=== PATIENT | male | born 1955 | race Caucasian/White ===

== ENCOUNTER 2016-12-13 21:57 | Emergency (ER) | payer BC ==
[~2016-12-13] VITALS: Ht 185.4 cm; Wt 144.0 kg
[~2016-12-13 21:57] MED LIST: ALLEGRA180 MG PO; AMLODIPINE5 MG PO; ASPIRIN LOW DOS81 M2 PO; ATORVASTATIN CA40 MG PO; BACTROBAN2 % EX; BAYER LOW81 MG OR; CEPHALEXIN500 MG OR; DIOVAN HCT160 MG/25 OR; FINASTERIDE5 MG PO; FLONASE NASAL50 MCG; GEMFIBROZIL600 MG OR; KLOR-CON/EF25 MEQ PO; LORTAB5 PO; LOSARTAN/HCT1 TA1 PO; LOSARTAN/HCT1 TA2 PO; MELOXICAM7.5 MG OR; METOPROL TAR25 MG PO; MOBIC7.5 M1 PO; NAPROXEN500 MG OR; PERCOCET 5/325M1 TAB OR; STATIN DRUG; ULTRAM50 M1 OR; ULTRAM50 MG OR; ZYLOPRIM300 MG PO
[2016-12-13] MEDS ORDERED: GABAPENTIN100 MG PO (22:11)
[2016-12-13] MEDS ORDERED: TAMSULOSIN0.4 MG PO (22:13)
[2016-12-13] MEDS ORDERED: FLOXIN OTIC0.3 % AD (22:25)
[2016-12-13] MEDS ORDERED: AMOX/K CLAV875 M1 PO (22:25)
[2016-12-13] MEDS ORDERED: FLONASE AL50 MCG/ACT (22:25)
[2016-12-13 22:34] VITALS: BP 126/64
== END 2016-12-13 22:34 | disposition home or self-care (01) | DRG 153 ==
LOC: ED 21:57
DX: H66.91 Otitis media, unspecified, right ear (principal); I10 Essential (primary) hypertension

== ENCOUNTER 2017-01-04 17:35 | Emergency (ER) | payer BC ==
[~2017-01-04] VITALS: Ht 185.4 cm; Wt 144.0 kg
[~2017-01-04 17:35] MED LIST changes: +AMOX/K CLAV875 M1 PO; +FLONASE AL50 MCG/ACT; +FLOXIN OTIC0.3 % AD; +GABAPENTIN100 MG PO; +TAMSULOSIN0.4 MG PO
[2017-01-04] MEDS ORDERED: FLONASE AL50 MCG/ACT (19:10)
[2017-01-04] MEDS ORDERED: CLARITIN10 M1 PO (19:10)
[2017-01-04] MEDS ORDERED: CEPHALEXIN500 MG PO (19:10)
[2017-01-04 19:13] VITALS: BP 163/124
== END 2017-01-04 19:19 | disposition home or self-care (01) | DRG 153 ==
LOC: ED 17:35
DX: H65.93 Unspecified nonsuppurative otitis media, bilateral (principal); I10 Essential (primary) hypertension

== ENCOUNTER 2017-10-23 08:40 | Emergency (ER) | payer BC ==
[~2017-10-23] VITALS: Ht 185.4 cm; Wt 136.0 kg
[~2017-10-23 08:40] MED LIST changes: +CEPHALEXIN500 MG PO; +CLARITIN10 M1 PO
[2017-10-23 09:43] VITALS: BP 155/81
== END 2017-10-23 09:46 | disposition home or self-care (01) | DRG 556 ==
LOC: ED 08:40
PROC: 2W3JX1Z Immobilization of Right Finger using Splint (ICD-10-PCS; principal; 2017-10-23)
DX: M25.531 Pain in right wrist (principal); M19.031 Primary osteoarthritis, right wrist; X50.0XXA Overexertion from strenuous movement or load, initial encounter; Y93.89 Activity, other specified; Y92.009 Unspecified place in unspecified non-institutional (private) residence as the place of occurrence of the external cause

== ENCOUNTER 2018-01-31 02:38 | Observation (INO) | payer BC ==
[~2018-01-31] VITALS: Ht 185.4 cm; Wt 134.7 kg
--- NOTE | 2018-01-31 02:39 | NUR ---
PATIENT IMMEDIATELY TO ROOM 10. PLACED ON MONITOR. EKG COMPLETED. TRIAGE COMPLETED AT BEDSIDE.
[2018-01-31 03:19] LABS: IMMATURE GRANULOCYTES 0.2 % (0.0-5.0); MEAN CELL VOLUME 96.3 fL CALC (80.0-100.0); MEAN CORPUSCULAR HGB 31.5 pG CALC (26.0-32.0); MEAN CORPUSCULAR HGB CONC 32.7 g/L CALC (32.0-36.0); NEUT# 7.36 thou/uL (1.82-7.42); RED BLOOD COUNT 5.4 mill/uL (4.70-6.10); RED CELL DISTRI WIDTH 13.5 % (11.5-15.5)
[2018-01-31 03:31] LABS: ALBUMIN 4.4 g/dL (3.2-5.0); ALKALINE PHOSPHATASE 106 u/l (38-126); ANION GAP 18 (6-22 (CALC)); BILIRUBIN, TOTAL 2.1 mg/dL (0.0-1.4); BUN 29 mg/dL (8-23); BUN/CREATININE RATIO 16 (12-20 (CALC)); CARBON DIOXIDE 28 mmol/l (22-30); CHLORIDE 102 mmol/l (95-108); CREATININE 1.8 mg/dL (0.7-1.3); GFR 38 ML/MIN (>=60 (CALC)); GFR FOR AFR.AMER. 46 ML/MIN (>=60 (CALC)); POTASSIUM 3.3 mmol/l (3.5-5.1); SGOT/AST 35 u/l (19-48); SGPT/ALT 37 u/l (11-66); SODIUM 144 mmol/l (137-146); TOTAL PROTEIN 8.1 g/dL (6.3-8.2)
[2018-01-31 03:40] LABS: D-DIMER 0.66 mg/L (0.19-0.60); INTERNATIONAL NORMALIZED RATIO 1.1 RATIO (0.7-1.3)
[2018-01-31 03:43] LABS: MYOGLOBIN 316 ng/mL (0 - 121)
--- NOTE | 2018-01-31 04:20 | NUR ---
PT RESTING. PAIN FREE. PWD RESP EASY REG. LUNGS CLEAR. ABD SOFT. NO EDEMA. CM NSR.
--- NOTE | 2018-01-31 04:20 | NUR ---
REPORT TO LINDA, MED/SURG
--- NOTE | 2018-01-31 04:28 | NUR ---
PT TO FLOOR WITHOUT INCIDENT
[2018-01-31 04:30] VITALS: BP 103/65
--- NOTE | 2018-01-31 04:30 | NUR ---
PT ARRIVED TO THE FLOOR VIA STRETCHER ACCOMPANIED BY ED NURSE. PT APPEARS TO BE IN STABLE CONDITION, NO S/S OF DISTRESS, DENIES PAIN/N/V OR SOB. V/S ARE BEING ASSESSED, ASSESSMENT COMPLETED AND PT ORIENTED TO ROOM, CALL SYSTEM, BED,LIGHTS,TV AT THIS TIME. LUNG SOUNDS ARE CLEAR, ABD DIST/FIRM/NON-TENDER, SKIN INTACT, NEURO'S INTACT, LOCX3, SLIGHT HARD OF HEARING/NO HEARING AIDES, NO NOTED EDEMA. PT O2SATS ARE 95% ON RA, BUT O2 IS AVAILABLE TO PT AT BEDSIDE. WILL CONTINUE TO MONITOR AND PT ENCOURAGED TO CALL IF ANY NEEDS ARISE.
[2018-01-31 05:01] LABS: CHOLESTEROL HDL RATIO 3.4 (<4.4 (CALC))
[2018-01-31 07:13] VITALS: BP 118/75
--- NOTE | 2018-01-31 07:13 | NUR ---
BEDSIDE REPORT RECEIVED BY CALIN. PT STATED LEFT CHEST PAIN AND LEFT ARM BURNING. VS OBTAIN. PER ED TELE IS SR 61. MEDICATED PT WTIH NITROL OINTMENT SEE EMAR. EKG ORDERED. SAFETY PRECAUTIONS REINFORCED AND CALL LIGHT IN REACH.
--- NOTE | 2018-01-31 07:15 | NUR ---
PT CALLED TO REPORT SEVERE PAIN STARTIING IN CHEST AND RADIATING DOWN ARM PAST HIS ELBOW. V/S ASSESSED/STABLE, PT PLACED ON O2NC@2L, SR 62 ON TELEMETRY,EKG ORDERED STAT AND REPEAT TROPONIN ORDERED STAT. NITRO PASTE PLACED ON PT. WILL CONTINUE TO MONITOR AND ASSESS FOR IMPROVEMENT AND CHANGES. WILL NOTIFY PHYSICIAN.
--- NOTE | 2018-01-31 07:30 | NUR ---
PT REPORTS RELEIF OF PAIN AFTER PLACEMENT OF NITRO PASTE. WILL CONTINUE TO MONITOR CLOSELY AND REASSESS NEEDED. DAY NURSE W/PT.
--- NOTE | 2018-01-31 08:30 | NUR ---
ASSESSMENT DONE TELE IN PLACE. RESPS EVEN AND UNLABORED. PT IS A&O X3. PT DENIES PAIN AT THIS TIME. NS 100ML/HR INFUSING WELL. SAFETY PRECAUTIONS REINFORCED AND CALL LIGHT IN REACH. NOTIFIED JAH MAN THAT PT HAD CHEST PAIN AND EKG OBTAIN. ALSO, THAT PT DENIES ANY PAIN AT THIS TIME.
[2018-01-31] MEDS ORDERED: ASPIRIN ADULT L81 M2 PO (10:10)
--- NOTE | 2018-01-31 10:13 | NUR ---
PER ED TELE READING HEART RATE 108 WITH PVS. WENT TO CHECK PT. PT IS IN THE BATHROOM AND NOW AMBULATING BACK TO BED. PT DENIES PAIN AT THIS TIME. DECKHAND CRAB BOAT AT SIDE.
--- NOTE | 2018-01-31 10:31 | NUR ---
JAH MAN AT BEDSIDE TO ASSESS PT.
[2018-01-31 11:18] VITALS: BP 110/75
--- NOTE | 2018-01-31 12:00 | NUR ---
PT IS SITTING IN THE SIDE OF THE BED. NO S/S OF DISTRESS NOTED. TELE IN PLACE PT DENIES PAIN AT THIS TIME. CALL LIGHT IN REACH.
--- NOTE | 2018-01-31 15:10 | NUR ---
Discharge instructions given. Patient verbalizes understanding of same. Discharged in stable condition via Wheelchair to Home with staff. All belongings sent with pt.
== END 2018-01-31 15:11 | disposition home or self-care (01) | DRG 313 ==
LOC: ED 02:38 → ED-I 03:00 → ED 03:57 → MS2 03:58
PROVIDERS: Family Medicine; ADMIT Internal Medicine; ATTEND Internal Medicine
DX: R07.9 Chest pain, unspecified (principal); I12.9 Hypertensive chronic kidney disease with stage 1 through stage 4 chronic kidney disease, or unspecified chronic kidney disease; N18.3 Chronic kidney disease, stage 3 (moderate); E78.5 Hyperlipidemia, unspecified; G62.9 Polyneuropathy, unspecified; M96.1 Postlaminectomy syndrome, not elsewhere classified; E66.01 Morbid (severe) obesity due to excess calories; E87.6 Hypokalemia; Z68.39 Body mass index [BMI] 39.0-39.9, adult; Z87.442 Personal history of urinary calculi; S43.402A Unspecified sprain of left shoulder joint, initial encounter; X50.1XXA Overexertion from prolonged static or awkward postures, initial encounter; Y93.84 Activity, sleeping; Y92.003 Bedroom of unspecified non-institutional (private) residence as the place of occurrence of the external cause; M19.012 Primary osteoarthritis, left shoulder
CPT/HCPCS: G0378; J1650

== ENCOUNTER → 2018-07-03 | Outpatient (REF) | payer MEDICARE ==
[~2018-07-03] MED LIST changes: +ASPIRIN ADULT L81 M2 PO
== END | disposition home or self-care (01) ==
LOC: DI 08:08
PROVIDERS: ATTEND Internal Medicine
DX: R05 Cough (principal)

== ENCOUNTER 2022-11-18 08:34 | Day surgery (SDC) | payer MEDICARE ==
[~2022-11-18] VITALS: Ht 185.4 cm; Wt 122.9 kg
[~2022-11-18 08:34] MED LIST changes: +D325 MCG PO; +MONTELUKAST SOD10 MG PO; +PROSCAR5 MG PO; +PROTONIX40 M2 PO
[2022-11-18 11:38] VITALS: BP 149/96
== END 2022-11-18 11:25 | disposition home or self-care (01) ==
LOC: ENDO 08:34 → ORM 11:15 → ENDO 11:25 → ORM 11:40
PROVIDERS: ATTEND Internal Medicine Gastroenterology
PROC: 0DJD8ZZ Inspection of Lower Intestinal Tract, Via Natural or Artificial Opening Endoscopic (ICD-10-PCS; principal; 2022-11-18)
PROC: 0DB48ZX Excision of Esophagogastric Junction, Via Natural or Artificial Opening Endoscopic, Diagnostic (ICD-10-PCS; 2022-11-18)
PROC: 0DB78ZX Excision of Stomach, Pylorus, Via Natural or Artificial Opening Endoscopic, Diagnostic (ICD-10-PCS; 2022-11-18)
DX: Z12.11 Encounter for screening for malignant neoplasm of colon (principal); K57.30 Diverticulosis of large intestine without perforation or abscess without bleeding; K64.8 Other hemorrhoids; K21.00 Gastro-esophageal reflux disease with esophagitis, without bleeding; K29.50 Unspecified chronic gastritis without bleeding; K29.80 Duodenitis without bleeding; I10 Essential (primary) hypertension; I48.91 Unspecified atrial fibrillation; E78.5 Hyperlipidemia, unspecified; Z95.818 Presence of other cardiac implants and grafts; Z79.899 Other long term (current) drug therapy
CPT/HCPCS: 43239; G0121